=== PATIENT | female | born 1950 | race Caucasian/White ===

== ENCOUNTER 2016-05-20 16:23 | Emergency (ER) | payer OTHER ==
--- NOTE | 2016-05-20 19:04 | DIAGNOSTIC IMAGING REPORT ---
PROCEDURE: XR CHEST 1 VIEW INDICATION: PICC INFECTION TECHNIQUE: Portable AP view 06:19 p.m. COMPARISON: Chest x-ray Will 01/23/2016. FINDINGS: 5.3 cm right basilar mass, previously 4.3 cm. Left lung is clear. Right PICC line has been removed. Heart and mediastinum are normal. Thorax is normal. IMPRESSION: 1. Right PICC line removed 2. Progression of right basilar mass
--- NOTE | 2016-05-20 19:26 | ED CLINICAL REPORT ---
Clinical Report - Physicians/Mid Levels Located Within [facility] [address] [place] [address] 05/20/2016 16:23 Patient: GLORIA ESCOBEDO Time Seen: 17:31. Arrived- By private vehicle. Historian- patient. HISTORY OF PRESENT ILLNESS Chief Complaint: PICC line infection. This started several days ago and is still present. It was gradual in onset and has been constant. (patient has a history of metastatic colon cancer and right-sided lung cancer. She had a PICC line placed approximately 4 months ago. She last had chemotherapy 1-2 weeks ago. She will be due in another 1-2 weeks for another round. She noticed increased redness and a sore spot just next to her PICC line. She denies any fevers chills sweats. She does report some nausea however she feels this is due to her chronic illness rather than the current infection on her skin.). REVIEW OF SYSTEMS No chills, fever, sweats, calf pain or chest pain. No difficulty breathing, pedal edema or palpitations. She has had a cough. She has had back pain (chronically). It has been similar to previous symptoms. All systems otherwise negative, except as recorded above. SOCIAL HISTORY Current every day light tobacco smoker (cigarette)- less than 1/2 a pack per day. No alcohol use or drug use. She lives with spouse. Has good social support. FAMILY HISTORY Denies family medical history. ADDITIONAL NOTES The nursing notes have been reviewed. PHYSICAL EXAM Vital Signs: 05/20/2016 16:56 BP: 127/93. HR: 63. RR: 16. O2 saturation: 100%. Temp: 98.3 F. Have been reviewed. Appearance: Alert. She appears frail. Eyes: Pupils equal, round and reactive to light. ENT: Pharynx normal. Neck: Neck supple. CVS: Normal heart rate and rhythm. Heart sounds normal. Respiratory: Decreased air movement. Abdomen: No visible injury. Soft and nontender. Bowel sounds normal. No organomegaly. No mass. Skin: (Right upper arm PICC line site with an area approximately 5 cm in diameter of erythema, increased warmth and tenderness around it. Additionally there is a small ulcerative lesion just lateral to it.). Extremities: Extremities exhibit normal ROM. No calf tenderness. No lower extremity edema. LABS, X-RAYS, AND EKG EKG: Rate: 61. Incomplete RBBB. The study has been independently viewed by me. Chest X-ray: (R basilar mass PICC absent). A comparison with prior films (01/23/16). Laboratory Tests: CBC w Diff: (JOE: 05/20/2016 18:15) ( [facility]28[facility] Final results Test Result Flag Units (Reference) WHITE BLOOD COUNT 3.8 L K/uL (4.5-11.5) RED BLOOD COUNT 2.93 L M/uL (4.00-5.20) HEMOGLOBIN 9.2 L gm/dL (12.0-16.0) HEMATOCRIT 27.5 L % (36.0-46.0) MEAN CELL VOLUME 94 fL (80-100) MEAN CORPUSCULAR HGB 32 pg (26-34) MEAN CORPUSCULAR HGB CONC 34 g/dL (31-37) RED CELL DISTRIBUTION WIDTH 16.5 H % (11.6-14.8) PLATELET COUNT 145 L K/uL (150-400) NEUTROPHIL % 29.6 L % (50-75) LYMPH % 55.1 H % (25-40) MONO % 13.3 % (3-14) EOSINOPHIL % 1.6 % (0-4) BASOPHIL % 0.4 % (0-2) CMP: (JOE: 05/20/2016 18:15) ( MsgRcvd 05/20/2016 18:46) Final results Test Result Flag Units (Reference) GLUCOSE 80 mg/dL (70-110) BUN 14 mg/dL (7-18) CREATININE 1.0 mg/dL (0.6-1.3) Estimated GFR 59.14 mL/min Estimated GFR- >60 mL/min Note: Persistent reduction over 3 months in eGFR<60 mL/min/1.73 m2 defines CKD. Patients with eGFR values>=60 mL/min/1.73 m2 may also have CKD if evidence ofpersistent proteinuria. Additional information may be foundat www.kidney.org. SODIUM 137 mmol/L (136-145) POTASSIUM 4.4 mmol/L (3.5-5.1) CHLORIDE 103 mmol/L (98-107) CARBON DIOXIDE 27 mmol/L (21-32) CALCIUM 9.0 mg/dL (8.5-10.1) TOTAL PROTEIN 7.1 g/dL (6.4-8.2) ALBUMIN 3.2 L g/dL (3.3-5.0) BILIRUBIN, TOTAL 0.3 mg/dL (0.0-1.0) ALKALINE PHOSPHATASE 74 U/L (46-116) AST (SGOT) 29 U/L (15-37) ALT (SGPT) 29 U/L (12-78) . PROGRESS AND PROCEDURES Course of Care: I obtained a culture of the ulcerative wound. I removed the PICC line in a sterile fashion and sent the tip for culture as well. Consult obtained from oncology. Dr. Fernandez. Case discussed. Phone consult only. Will see patient in the office. Patient/family counseled. Old medical records ordered. Old records unavailable. Disposition: Discharged. Condition: stable. CLINICAL IMPRESSION Abnormal tests: (Pancytopenia). Cellulitis of the right upper arm (around a PICC line site). INSTRUCTIONS No driving or operating machinery while taking medication. Sedative medication was given during your visit. Warnings: Further evaluation is necessary. GENERAL WARNINGS: Return or contact your physician immediately if your condition worsens or changes unexpectedly, if not improving as expected, or if other problems arise. Your Current Medications: CONTINUE TAKING THE FOLLOWING MEDICATIONS: Chemotherapy*. Docusate Sodium Oral : daily. Folic Acid Oral : daily. Naproxen Oral : prn. OxyCONTIN Oral : 30mg daily. Phenergan (Promethazine) Oral : Q4H. Zofran ODT Oral : prn. Prescription Medications: Cephalexin 500 mg: take 1 capsule orally every 6 hours for 10 days. No refill. Follow-up: Follow up with an oncologist Dr. Rebecca Whitfield in two days as scheduled. Understanding of the discharge instructions verbalized by patient. (Electronically signed by Todd Banegas MD 05/20/2016 21:20)
--- NOTE | 2016-05-20 19:26 | ED ORDER SUMMARY ---
..... Patient: GLORIA ESCOBEDO OrderSheet [facility] VisitID: [id number] [place] [address] 65y, F Registration Date/Time: 05/20/2016 ORDER SHEET Weight: 40.8 kg (stated) Allergies: Codeine GENERAL ORDERS: Blood Culture (No) (N/A) Urgent (18:04 05/20/2016 Temi NOLAN) (Ack 18:14 Frank) (18:42 ALawrence ER Tech1) Culture, Wound Surface (Arm) (ulcer next to a PICC site) Urgent (18:05 05/20/2016 Temi NOLAN) (Ack 18:14 Frank) (18:18 SReitz R.N.) - (Culture, PICC Line tip) (18:05 05/20/2016 Temi NOLAN) (Ack 18:18 ALawrence ER Tech1) (18:19 SReitz R.N.) (Ack 18:19 Frank) Chest 1V Urgent (18:07 05/20/2016 Temi NOLAN) (Ack 18:15 Frank) (18:23 SReitz R.N.) CBC w Diff Urgent (18:08 05/20/2016 Temi NOLAN) (Ack 18:14 Frank) (18:18 SReitz R.N.) CMP Urgent (18:08 05/20/2016 Temi NOLAN) (Ack 18:14 Frank) (18:18 SReitz R.N.) Lactate, Serum Urgent (18:08 05/20/2016 Temi NOLAN) (Ack 18:15 Frank) (18:19 SReitz R.N.) EKG - ER Stat (18:08 05/20/2016 Temi NOLAN) (Ack 18:15 Frank) (18:18 SReitz R.N.) MEDICATION ORDERS: Oxycodone-APAP PO 10/650 mg (HIGH ALERT MEDICATION, NOW) (18:06 05/20/2016 Temi NOLAN) (18:18 SReitz R.N.) IV FLUIDS: IV Saline Lock (18:08 05/20/2016 Temi NOLAN) (18:18 SReitz R.N.) ORDER SHEET NOTES: [Electronically signed by Pranay James R.N. (19:40 05/20/2016)] [Electronically signed by Todd Banegas MD (21:20 05/20/2016)] [Electronically locked/signed by Pranay James R.N. (19:40 05/20/2016)]
--- NOTE | 2016-05-20 19:26 | ED NURSING NOTES ---
Clinical Report - Nurses [facility] [address] [place] [address] 05/20/2016 16:23 Patient: GLORIA ESCOBEDO TRIAGE Triage time 16:56. Acuity: LEVEL 3. Chief Complaint: ("infected PICC line"). Alert. No acute distress. ( Pt. states she had tingling in her fingers last night and then today realized her PICC line looked infected. She consulted with her oncologist who instructed her to go to the urgent care. She was seen at urgent care today and they instructed her to go to the ED.). SEPSIS SCREEN: Sepsis Screen. Negative (no infection suspected/documented). TYESHA COMA SCORE: Tyesha Coma Scale: 15- eyes open spontaneously (4); best verbal response- oriented x 4 (5); best motor response- obeys commands (6). --17:04 Cheryl Ortiz R.N. 16:56 05/20/16. BP: 127/93. HR: 63. RR: 16. O2 saturation: 100%. Temp: 98.3 F. Pain level now 04/06. --17:04 Cheryl Ortiz R.N. Weight: 40.8 kg stated. Height/Length: 60 inches Per Patient. BMI: 17.6. --16:59 Cheryl Ortiz R.N. Medications OxyCONTIN Oral 30mg daily. --17:00 Cheryl Ortiz R.N. Chemo. --17:00 Cheryl Ortiz R.N. Chemotherapy. Zofran ODT Oral, as needed. --17:01 Cheryl Ortiz R.N. Phenergan (Promethazine) Oral, Q4H. --17:01 Cheryl Ortiz R.N. Docusate Sodium Oral, daily. --17:02 Cheryl Ortiz R.N. Folic Acid Oral, daily. --17:02 Cheryl Ortiz R.N. Naproxen Oral, as needed. --17:02 Cheryl Ortiz R.N. Allergies Codeine. (vomiting) --17:02 Cheryl Ortiz R.N. History Arrived by private vehicle. Historian: patient. Accompanied by family. Primary physician (Oncologist: Dr. Fernandez). This started last night. Treatment EMPLOYMENT INSTRUCTIONAL ASSOCIATE: None. PAST MEDICAL HX: Immunizations: up-to-date. SOCIAL HX: Light tobacco smoker (cigarette)- less than 1/2 a pack per day. No alcohol use or drug use. No infectious disease exposure. ABUSE ASSESSMENT: Abuse assessment: The patient was asked "Do you feel safe in your home?" and "Has anyone hurt you or threatened to hurt you?". No report of abuse. NUTRITIONAL RISK ASSESSMENT: The nutritional risk assessment revealed no deficiencies. FUNCTIONAL ASSESSMENT: Functional assessment: no impairments noted. LEARNING NEEDS ASSESSMENT: The learning needs assessment revealed no barriers. --17:04 Cheryl Ortiz R.N. PROBLEMS: Arthritis. Sciatica. Colon Cancer. Lung Cancer. --17:04 Cheryl Ortiz R.N. ADDITIONAL SURGERIES: Colon. Lung Surgery. --17:04 Cheryl Ortiz R.N. Interventions ID band on patient. Ambulatory. --17:04 Cheryl Ortiz R.N. PHYSICAL ASSESSMENT Ambulatory to room. GENERAL / NEURO / PSYCH: Alert. Appears in no acute distress. RESPIRATORY: Respirations not labored. CVS: Capillary refill less than 2 seconds. Pulses within normal limits. SKIN: Skin intact. Skin is warm and dry. --17:05 Cheryl Ortiz R.N. ( PICC line in place on arrival. Appears red/swollen and draining yellow/green fluid.). --17:05 Cheryl Ortiz R.N. NURSING PROGRESS NOTES Patient gowned. Head of bed elevated. Two patient identifiers checked. Call light placed in reach. Side rails up x 2. Bed placed in lowest position. Brakes of bed on. Patient ready for evaluation- chart flagged. --17:06 Cheryl Ortiz R.N. 18:15 05/20/2016 Site #1 started via IV in the left forearm with an 20g angiocath, with aseptic technique and good blood return; one attempt. Blood drawn: rainbow set. Labeled in the presence of the patient and sent to the lab. Saline lock flushed with 10 mL saline. --18:18 Cheryl Ortiz R.N. 18:18 05/20/2016 Oxycodone-APAP (Oxycodone-Acetaminophen) PO 10/650 mg Tablets 1 tab given. Allergies verified, confirmed 5 rights and sedative warning given to the patient. --18:18 Cheryl Ortiz R.N. Portable chest x-ray ordered, performed and shown to the ED physician. --18:21 Cheryl Ortiz R.N. EKG time: (18:21). EKG was ordered, performed by a tech and shown to the ED physician. --18:22 Charity Florentino ( lab notified to draw cultures.). --18:23 Cheryl Ortiz R.N. 17:51 05/20/16. ( assisted MD when he pulled picc line from right upper arm. pts picc tip was clipped and placed in sterile container using sterile technique, area of breakdown/wound cultured with culturette and sent to lab. pt tolerated the procedure well, "I didn't even really feel it"). --18:38 Vito Ronquillo R.N. Care transferred and report given (to SABA Krishnamurthy). --19:20 Cheryl Ortiz R.N. The patient is calm and resting quietly. RESPIRATORY: No respiratory distress. SKIN: Skin is warm and dry. Care transferred and report received (SABA Luna). --19:26 Raghu Stoner R.N. 19:40 05/20/2016 Oxycodone-APAP PO Response: no adverse reaction pain is improving. Symptoms have improved the patient feels better. --19:40 Raghu Stoner R.N. DISPOSITION / DISCHARGE Condition at departure: stable. The goals identified in the patient's plan of care were met. TYESHA COMA SCORE: Tyesha Coma Scale: 15- eyes open spontaneously (4); best verbal response- oriented x 4 (5); best motor response- obeys commands (6). --19:27 Raghu Stoner R.N. 19:26 05/20/16. BP: 130/71 (regular adult cuff) taken on the left arm, via an automated monitor, while lying. HR: 64 (normal rate). RR: 14 (regular, unlabored and normal). O2 saturation: 94% on room air. Temp: 98.4 F (oral). --19:27 Raghu Stoner R.N. Departure time: 19:39. Condition at departure: improved. No learning barriers present. Discharge instructions provided and reviewed with the patient. Reviewed medication(s) side effects, precautions, dosing and course information. Prescription(s) given to the patient. Note given (rest). Patient verbalized understanding. Written instructions provided in French. ( A new dressing was placed on the right upper arm.). The patient was discharged by the physician. She was discharged home and accompanied by spouse. She left the Emergency Department ambulatory and via private vehicle. Spouse driving. --19:40 Pranay James R.N. 19:28 05/20/16. Pain level now 0/10. --19:40 Pranay James R.N. Locked/Released at 05/20/2016 19:40 by Pranay James R.N.
--- NOTE | 2016-05-20 19:26 | ED ORDER SUMMARY ---
..... Patient: GLORIA ESCOBEDO OrderSheet [facility] VisitID: [id number] [place] [address] 65y, F Registration Date/Time: 05/20/2016 ORDER SHEET Weight: 40.8 kg (stated) Allergies: Codeine GENERAL ORDERS: Blood Culture (No) (N/A) Urgent (18:04 05/20/2016 Temi NOLAN) (Ack 18:14 Frank) (18:42 ALawrence ER Tech1) Culture, Wound Surface (Arm) (ulcer next to a PICC site) Urgent (18:05 05/20/2016 Temi NOLAN) (Ack 18:14 Frank) (18:18 SReitz R.N.) - (Culture, PICC Line tip) (18:05 05/20/2016 Temi NOLAN) (Ack 18:18 ALawrence ER Tech1) (18:19 SReitz R.N.) (Ack 18:19 Frank) Chest 1V Urgent (18:07 05/20/2016 Temi NOLAN) (Ack 18:15 Frank) (18:23 SReitz R.N.) CBC w Diff Urgent (18:08 05/20/2016 Temi NOLAN) (Ack 18:14 Frank) (18:18 SReitz R.N.) CMP Urgent (18:08 05/20/2016 Temi NOLAN) (Ack 18:14 Frank) (18:18 SReitz R.N.) Lactate, Serum Urgent (18:08 05/20/2016 Temi NOLAN) (Ack 18:15 Frank) (18:19 SReitz R.N.) EKG - ER Stat (18:08 05/20/2016 Temi NOLAN) (Ack 18:15 Frank) (18:18 SReitz R.N.) MEDICATION ORDERS: Oxycodone-APAP PO 10/650 mg (HIGH ALERT MEDICATION, NOW) (18:06 05/20/2016 Temi NOLAN) (18:18 SReitz R.N.) IV FLUIDS: IV Saline Lock (18:08 05/20/2016 Temi NOLAN) (18:18 SReitz R.N.) ORDER SHEET NOTES: [Electronically signed by Pranay James R.N. (19:40 05/20/2016)] [Electronically signed by Todd Banegas MD (21:20 05/20/2016)] [Electronically locked/signed by Pranay James R.N. (19:40 05/20/2016)]
--- NOTE | 2016-05-20 21:21 | ED DISCHARGE INSTRUCTIONS ---
Patient: GLORIA ESCOBEDO General Instructions [facility] VisitID: [id number] [place] [address] 65y, F Registration Date/Time: 05/20/2016 Abnormal tests: (Pancytopenia). Cellulitis of the right upper arm (around a PICC line site). INSTRUCTIONS No driving or operating machinery while taking medication. Sedative medication was given during your visit. Warnings: Further evaluation is necessary. GENERAL WARNINGS: Return or contact your physician immediately if your condition worsens or changes unexpectedly, if not improving as expected, or if other problems arise. Your Current Medications: CONTINUE TAKING THE FOLLOWING MEDICATIONS: Chemotherapy*. Docusate Sodium Oral : daily. Folic Acid Oral : daily. Naproxen Oral : prn. OxyCONTIN Oral : 30mg daily. Phenergan (Promethazine) Oral : Q4H. Zofran ODT Oral : prn. Prescription Medications: Cephalexin 500 mg: take 1 capsule orally every 6 hours for 10 days. No refill. Follow-up: Follow up with an oncologist Dr. Rebecca Whitfield in two days as scheduled. Understanding of the discharge instructions verbalized by patient. ADDITIONAL INFORMATION Cephalexin Monohydrate Oral tablet What is this medicine? CEPHALEXIN (sef a ANGELINA in) is a cephalosporin antibiotic. It is used to treat certain kinds of bacterial infections It will not work for colds, flu, or other viral infections. How should I use this medicine? Take this medicine by mouth with a full glass of water. Follow the directions on the prescription label. This medicine can be taken with or without food. Take your medicine at regular intervals. Do not take your medicine more often than directed. Take all of your medicine as directed even if you think you are better. Do not skip doses or stop your medicine early. Talk to your roading engineer regarding the use of this medicine in children. While this drug may be prescribed for selected conditions, precautions do apply. What side effects may I notice from receiving this medicine? Side effects that you should report to your doctor or health career services officer as soon as possible: allergic reactions like skin rash, itching or hives, swelling of the face, lips, or tongue breathing problems pain or trouble passing urine redness, blistering, peeling or loosening of the skin, including inside the mouth severe or watery diarrhea unusually weak or tired yellowing of the eyes, skin Side effects that usually do not require medical attention (report to your doctor or health career services officer if they continue or are bothersome): gas or heartburn genital or anal irritation headache joint or muscle pain nausea, vomiting What may interact with this medicine? probenecid some other antibiotics What if I miss a dose? If you miss a dose, take it as soon as you can. If it is almost time for your next dose, take only that dose. Do not take double or extra doses. There should be at least 4 to 6 hours between doses. Where should I keep my medicine? Keep out of the reach of children. Store at room temperature between 59 and 86 degrees F (15 and 30 degrees C). Throw away any unused medicine after the expiration date. What should I tell my health care provider before I take this medicine? They need to know if you have any of these conditions: kidney disease stomach or intestine problems, especially colitis an unusual or allergic reaction to cephalexin, other cephalosporins, penicillins, other antibiotics, medicines, foods, dyes or preservatives or trying to get breast-feeding What should I watch for while using this medicine? Tell your doctor or health career services officer if your symptoms do not begin to improve in a few days. Do not treat diarrhea with over the counter products. Contact your doctor if you have diarrhea that lasts more than 2 days or if it is severe and watery. If you have diabetes, you may get a false-positive result for sugar in your urine. Check with your doctor or health career services officer. You have been given the following additional information: Cephalexin Monohydrate Oral tablet No driving or operating machinery while taking medication. Sedative medication was given during your visit. (Electronically signed by Todd Banegas MD 05/20/2016 21:20)
--- NOTE | 2016-05-20 21:21 | ED MED RECONCILIATION SUMMARY ---
Patient: GLORIA ESCOBEDO Medication Reconciliation Report [facility] VisitID: [id number] [address] [place] [address] 65y, F Registration Date/Time: 05/20/2016 Weight: 40.8 kg Height/Length: 60 in. BMI: 17.6 ALLERGIES: Codeine The patient's Home Medications are listed below: CONTINUE TAKING THE FOLLOWING MEDICATIONS: Chemotherapy Docusate Sodium Oral, daily Folic Acid Oral, daily Naproxen Oral OxyCONTIN Oral 30mg daily Phenergan (Promethazine) Oral, Q4H Zofran ODT Oral THE FOLLOWING MEDICATIONS NEED TO BE RECONCILED: Chemo The source(s) of the original Home Medication information: Not obtained. The following Medications were given to the patient in the Emergency Department: Oxycodone-APAP [PO] PO 1 tab, administered: 05/20/2016 6:18:00 PM The following Medications were prescribed to the patient: Cephalexin 500 mg: take 1 capsule orally every 6 hours for 10 days. No refill. -- Todd Banegas MD
--- NOTE | 2016-05-20 21:21 | ED MAR SUMMARY ---
..... Medication Administration Record [facility] [address] [place] [address] Patient: GLORIA ESCOBEDO Visit ID: [id number] 65y, F Weight: 40.8 kg Height/Length: 60 in BMI: 17.6 ALLERGIES: Codeine Given 18:18 05/20/2016 Cheryl Ortiz R.N. Medication Administered: OXYCODONE-APAP [PO] (OXYCODONE-ACETAMINOPHEN), Dose: 1 tab 10/650 mg Tablets PO. Medication Ordered: Oxycodone-APAP PO 10/650 mg (HIGH ALERT MEDICATION, NOW).
--- NOTE | 2016-05-20 21:21 | ED MED RECONCILIATION SUMMARY ---
Patient: GLORIA ESCOBEDO Medication Reconciliation Report [facility] VisitID: [id number] [address] [place] [address] 65y, F Registration Date/Time: 05/20/2016 Weight: 40.8 kg Height/Length: 60 in. BMI: 17.6 ALLERGIES: Codeine The patient's Home Medications are listed below: CONTINUE TAKING THE FOLLOWING MEDICATIONS: Chemotherapy Docusate Sodium Oral, daily Folic Acid Oral, daily Naproxen Oral OxyCONTIN Oral 30mg daily Phenergan (Promethazine) Oral, Q4H Zofran ODT Oral THE FOLLOWING MEDICATIONS NEED TO BE RECONCILED: Chemo The source(s) of the original Home Medication information: Not obtained. The following Medications were given to the patient in the Emergency Department: Oxycodone-APAP [PO] PO 1 tab, administered: 05/20/2016 6:18:00 PM The following Medications were prescribed to the patient: Cephalexin 500 mg: take 1 capsule orally every 6 hours for 10 days. No refill. -- Todd Banegas MD
--- NOTE | 2016-05-20 21:21 | ED DISCHARGE INSTRUCTIONS ---
Patient: GLORIA ESCOBEDO General Instructions [facility] VisitID: [id number] [place] [address] 65y, F Registration Date/Time: 05/20/2016 Abnormal tests: (Pancytopenia). Cellulitis of the right upper arm (around a PICC line site). INSTRUCTIONS No driving or operating machinery while taking medication. Sedative medication was given during your visit. Warnings: Further evaluation is necessary. GENERAL WARNINGS: Return or contact your physician immediately if your condition worsens or changes unexpectedly, if not improving as expected, or if other problems arise. Your Current Medications: CONTINUE TAKING THE FOLLOWING MEDICATIONS: Chemotherapy*. Docusate Sodium Oral : daily. Folic Acid Oral : daily. Naproxen Oral : prn. OxyCONTIN Oral : 30mg daily. Phenergan (Promethazine) Oral : Q4H. Zofran ODT Oral : prn. Prescription Medications: Cephalexin 500 mg: take 1 capsule orally every 6 hours for 10 days. No refill. Follow-up: Follow up with an oncologist Dr. Rebecca Whitfield in two days as scheduled. Understanding of the discharge instructions verbalized by patient. ADDITIONAL INFORMATION Cephalexin Monohydrate Oral tablet What is this medicine? CEPHALEXIN (sef a ANGELINA in) is a cephalosporin antibiotic. It is used to treat certain kinds of bacterial infections It will not work for colds, flu, or other viral infections. How should I use this medicine? Take this medicine by mouth with a full glass of water. Follow the directions on the prescription label. This medicine can be taken with or without food. Take your medicine at regular intervals. Do not take your medicine more often than directed. Take all of your medicine as directed even if you think you are better. Do not skip doses or stop your medicine early. Talk to your zipper repairer regarding the use of this medicine in children. While this drug may be prescribed for selected conditions, precautions do apply. What side effects may I notice from receiving this medicine? Side effects that you should report to your doctor or health career technology teacher as soon as possible: allergic reactions like skin rash, itching or hives, swelling of the face, lips, or tongue breathing problems pain or trouble passing urine redness, blistering, peeling or loosening of the skin, including inside the mouth severe or watery diarrhea unusually weak or tired yellowing of the eyes, skin Side effects that usually do not require medical attention (report to your doctor or health career technology teacher if they continue or are bothersome): gas or heartburn genital or anal irritation headache joint or muscle pain nausea, vomiting What may interact with this medicine? probenecid some other antibiotics What if I miss a dose? If you miss a dose, take it as soon as you can. If it is almost time for your next dose, take only that dose. Do not take double or extra doses. There should be at least 4 to 6 hours between doses. Where should I keep my medicine? Keep out of the reach of children. Store at room temperature between 59 and 86 degrees F (15 and 30 degrees C). Throw away any unused medicine after the expiration date. What should I tell my health care provider before I take this medicine? They need to know if you have any of these conditions: kidney disease stomach or intestine problems, especially colitis an unusual or allergic reaction to cephalexin, other cephalosporins, penicillins, other antibiotics, medicines, foods, dyes or preservatives or trying to get breast-feeding What should I watch for while using this medicine? Tell your doctor or health career technology teacher if your symptoms do not begin to improve in a few days. Do not treat diarrhea with over the counter products. Contact your doctor if you have diarrhea that lasts more than 2 days or if it is severe and watery. If you have diabetes, you may get a false-positive result for sugar in your urine. Check with your doctor or health career technology teacher. You have been given the following additional information: Cephalexin Monohydrate Oral tablet No driving or operating machinery while taking medication. Sedative medication was given during your visit. (Electronically signed by Todd Banegas MD 05/20/2016 21:20)
--- NOTE | 2016-05-20 21:21 | ED MAR SUMMARY ---
..... Medication Administration Record [facility] [address] [place] [address] Patient: GLORIA ESCOBEDO Visit ID: [id number] 65y, F Weight: 40.8 kg Height/Length: 60 in BMI: 17.6 ALLERGIES: Codeine Given 18:18 05/20/2016 Cheryl Ortiz R.N. Medication Administered: OXYCODONE-APAP [PO] (OXYCODONE-ACETAMINOPHEN), Dose: 1 tab 10/650 mg Tablets PO. Medication Ordered: Oxycodone-APAP PO 10/650 mg (HIGH ALERT MEDICATION, NOW).
== END 2016-05-20 19:39 | disposition home or self-care (01) ==
LOC: ED SRH 16:23
DX: T82.7XXA Infection and inflammatory reaction due to other cardiac and vascular devices, implants and grafts, initial encounter (principal); L03.113 Cellulitis of right upper limb; D61.818 Other pancytopenia; Y84.8 Other medical procedures as the cause of abnormal reaction of the patient, or of later complication, without mention of misadventure at the time of the procedure; Z79.899 Other long term (current) drug therapy; C34.91 Malignant neoplasm of unspecified part of right bronchus or lung; C78.5 Secondary malignant neoplasm of large intestine and rectum; F17.210 Nicotine dependence, cigarettes, uncomplicated; Z88.5 Allergy status to narcotic agent; Z79.891 Long term (current) use of opiate analgesic; Z79.1 Long term (current) use of non-steroidal anti-inflammatories (NSAID)
CPT/HCPCS: 90065; 90074; 90100; 90131; 90146; 90309; 92031; 95059